=== PATIENT | male | born 1960 | race Caucasian/White ===

== ENCOUNTER 2023-02-21 03:06 | Inpatient (IN) | payer MEDICAID ==
[~2023-02-21] VITALS: Ht 177.8 cm; Wt 75.0 kg
[2023-02-21] VITALS (17 sets, daily range): BP systolic 137–178; BP diastolic 84–112; PULSE 70–91; RESP 15–23; TEMP 97.3–97.9; O2SAT 92–100
[2023-02-21] MEDS ORDERED: normal saline 1000ml 1,000 ML IV ONE (04:05)
[2023-02-21] MEDS ORDERED: fentaNYL/PF 50MCG/1 ML 2ML syringe IV ONE (04:05)
[2023-02-21 04:16] LABS: HEMOGLOBIN 12.4 g/dl (14.0-17.9); MEAN CORPUSCULAR HGB CONC 33.7 g/dL (33.0-36.5); MEAN PLATELET VOLUME 7.5 FL (7.4-10.4); RED BLOOD COUNT 3.96 X10'6 (4.70-6.10)
[2023-02-21 04:18] LABS: BASOPHILS % (AUTO) 0.2 % (0-1); EOSINOPHILS # (AUTO) 0.1 X10'3 (0-0.9); EOSINOPHILS % (AUTO) 1.6 % (0-6); HEMATOCRIT 36.8 % (42.0-52.0); LYMPHOCYTES # (AUTO) 0.9 X10'3 (1.1-4.8); LYMPHOCYTES % (AUTO) 12.3 % (21-51); MEAN CORPUSCULAR HEMOGLOBIN 31.3 PG (27.0-31.0); MEAN CORPUSCULAR VOLUME 92.8 FL (78-98); MONOCYTES # (AUTO) 0.5 X10'3 (0-0.9); MONOCYTES % (AUTO) 6.7 % (2-12); NEUTROPHILS # (AUTO) 5.7 X10'3 (1.8-7.7); NEUTROPHILS % (AUTO) 79.2 % (42-75); PLATELET COUNT 239 X10'3 (140-440); RED CELL DISTRIBUTION WIDTH 15.1 % (11.5-14.5); WHITE BLOOD COUNT 7.2 X10'3 (4.5-11.0)
[2023-02-21 04:21] LABS: APTT 28 SECONDS (22-32); INR 1.1 INR; PROTHROMBIN TIME 11.5 SECONDS (9.0-12.0)
[2023-02-21 04:22] LABS: ALANINE AMINOTRANSFERASE 29 U/L (12-78); ALBUMIN/GLOBULIN RATIO 0.8 (1.1-1.5); ALKALINE PHOSPHATASE 129 IU/L (46-116); ANION GAP 11 (8-16); ASPARTATE AMINO TRANSFERASE 21 U/L (10-37); BILIRUBIN,TOTAL 0.5 MG/DL (0.1-1.0); BLOOD UREA NITROGEN 7 MG/DL (7-18); BUN/CREATININE RATIO 8.3 (10.0-20.0); CALCIUM 8.3 MG/DL (8.5-10.1); CHLORIDE 103 MMOL/L (99-107); CREATININE 0.84 MG/DL (0.60-1.10); GLUCOSE 120 MG/DL (70-104); SODIUM 141 MMOL/L (135-145); TOTAL CARBON DIOXIDE 27.3 MMOL/L (24-32); TOTAL PROTEIN 6.9 G/DL (6.4-8.2); eCRCL 92 ML/MIN; eGFR > 90 ML/MIN
[2023-02-21 04:30] LABS: POTASSIUM 2.5 MMOL/L (3.5-5.1)
[2023-02-21] MEDS ORDERED: potassium Cl 20 mEq SR tablet PO STA (04:38)
[2023-02-21] MEDS ORDERED: magnesium 2GM in 50ml NS 50 ML IV ONE (04:40)
[2023-02-21 04:50] LABS: PLATELET ESTIMATE NORMAL
[2023-02-21 04:52] LABS: ANISOCYTOSIS 1+; ELLIPTOCYTES FEW
[2023-02-21 04:54] LABS: LARGE PLATELETS FEW; SCHISTOCYTES FEW; TEAR DROP CELLS FEW
[2023-02-21] MEDS ORDERED: potassium Cl 40MEQ/1/2NS 520ml 520 ML IV SCH ×3 (05:26→05:28)
[2023-02-21] MEDS ORDERED: potassium Cl 40MEQ/1/2NS 520ml 520 ML IV ONE ×2 (05:29→09:30)
[2023-02-21 05:30] LABS: BILIRUBIN,URINE NEGATIVE (Neg); CLARITY,URINE CLEAR (Clear); COLOR,URINE YELLOW (Yellow); GLUCOSE, URINE NEGATIVE (Neg); KETONES,URINE TRACE mg/dl (Neg); LEUKOCYTE ESTERASE ,URINE NEGATIVE (Neg); NITRITES, URINE NEGATIVE (Neg); OCCULT BLOOD,URINE NEGATIVE (Neg); PROTEIN,URINE NEGATIVE (Neg); UROBILINOGEN,URINE 0.2 E.U/dL (0.2-1.0)
[2023-02-21 05:32] LABS: UA COLLECTION TYPE CLN CATCH MIDSTREAM
[2023-02-21] MEDS ORDERED: piperacillin/tazo 4.5gm/100ml 100 ML IV ONE (09:25)
[2023-02-21] MEDS ORDERED: magnesium 4gm in 100ml NS 100 ML IV PRN (10:20)
[2023-02-21] MEDS ORDERED: magnesium Cl slow-release 64mg tablet PO PRN (10:20)
[2023-02-21] MEDS ORDERED: potassium Cl 40MEQ/1/2NS 520ml 520 ML IV PRN (10:20)
[2023-02-21] MEDS ORDERED: acetaminophen 325mg tablet PO PRN (10:20)
[2023-02-21] MEDS ORDERED: potassium Cl 20 mEq SR tablet PO PRN (10:20)
[2023-02-21 11:05] LABS: BASOPHILS % (AUTO) 0.2 % (0-1); EOSINOPHILS % (AUTO) 0.4 % (0-6); HEMATOCRIT 37.4 % (42.0-52.0); HEMOGLOBIN 12.5 g/dl (14.0-17.9); LYMPHOCYTES % (AUTO) 12.8 % (21-51); MEAN CORPUSCULAR HEMOGLOBIN 31.3 PG (27.0-31.0); MEAN CORPUSCULAR HGB CONC 33.3 g/dL (33.0-36.5); MEAN CORPUSCULAR VOLUME 94.2 FL (78-98); MEAN PLATELET VOLUME 6.9 FL (7.4-10.4); MONOCYTES # (AUTO) 0.5 X10'3 (0-0.9); MONOCYTES % (AUTO) 6.9 % (2-12); NEUTROPHILS # (AUTO) 6.3 X10'3 (1.8-7.7); NEUTROPHILS % (AUTO) 79.7 % (42-75); PLATELET COUNT 255 X10'3 (140-440); RED BLOOD COUNT 3.97 X10'6 (4.70-6.10); RED CELL DISTRIBUTION WIDTH 15.1 % (11.5-14.5); WHITE BLOOD COUNT 7.9 X10'3 (4.5-11.0)
[2023-02-21 11:34] LABS: MAGNESIUM 2.2 MG/DL (1.5-2.4)
[2023-02-21 11:41] LABS: ALANINE AMINOTRANSFERASE 26 U/L (12-78); ALBUMIN 2.9 G/DL (3.4-5.0); ALBUMIN/GLOBULIN RATIO 0.7 (1.1-1.5); ALKALINE PHOSPHATASE 126 IU/L (46-116); ANION GAP 10 (8-16); ASPARTATE AMINO TRANSFERASE 19 U/L (10-37); BILIRUBIN,TOTAL 0.6 MG/DL (0.1-1.0); BLOOD UREA NITROGEN 6 MG/DL (7-18); BUN/CREATININE RATIO 7.5 (10.0-20.0); CALCIUM 7.9 MG/DL (8.5-10.1); CHLORIDE 105 MMOL/L (99-107); GLUCOSE 115 MG/DL (70-104); POTASSIUM 3.4 MMOL/L (3.5-5.1); SODIUM 141 MMOL/L (135-145); TOTAL CARBON DIOXIDE 26.2 MMOL/L (24-32); TOTAL PROTEIN 7.1 G/DL (6.4-8.2); eCRCL 96 ML/MIN; eGFR > 90 ML/MIN
[2023-02-21] MEDS: morphine 2 MG/ML inj. syringe IV PRN ×2 (14:09→22:48)
[2023-02-21] MEDS: ondansetron/PF 4mg/2ml inj IV PRN (14:20)
[2023-02-21] MEDS ORDERED: morphine 4 MG/ML inj SYRINge IV PRN (14:55)
[2023-02-21] MEDS ORDERED: ringers solution, lacted 1,000 ML IV SCH (14:55)
[2023-02-21] MEDS ORDERED: hydrALAZINE 20mg/ml inj. IV PRN (14:55)
[2023-02-21] MEDS ORDERED: ondansetron/PF 4mg/2ml inj IV PRN (14:55)
[2023-02-21] MEDS ORDERED: labetalol 20mg/4ml (5mg/ml) syringe IV PRN (14:55)
[2023-02-21] MEDS ORDERED: fentaNYL/PF 50MCG/1 ML 2ML syringe IV PRN ×2 (14:55)
[2023-02-21] MEDS ORDERED: morphine 2 MG/ML inj. syringe IV PRN (14:55)
[2023-02-21] MEDS ORDERED: BUPIVACAINE liposomal/PF 13.3 MG/ML vial IM ONE (15:52)
[2023-02-21] MEDS ORDERED: BUPIVAcaine 2.5mg/ml inj 50ml vial (contains preservative) ONE (15:52)
[2023-02-21] MEDS ORDERED: midazolam 1 mg/ML 2ml injection ONE (15:54)
[2023-02-21] MEDS ORDERED: clindamycin-Cleocin 900mg/D5W 50 ML BAG IV ONE (15:55)
[2023-02-21] MEDS ORDERED: fentaNYL /PF 50mcg/ml 5ml ampule ONE (15:55)
[2023-02-21] MEDS ORDERED: desflurane 240ml liquid inh. IH ONE (15:55)
[2023-02-21] MEDS ORDERED: rocuronium 10mg/ml inj IV ONE ×2 (15:55→16:12)
[2023-02-21] MEDS ORDERED: propofol inj 20 ML IV ONE (16:12)
[2023-02-21] MEDS ORDERED: dexamethasone sod phosphate 4mg/ml inj. ONE (16:12)
[2023-02-21] MEDS ORDERED: LIDOcaine 2% (20mg/ml) 5ml vial ONE (16:12)
[2023-02-21] MEDS ORDERED: ondansetron/PF 4mg/2ml inj ONE (16:12)
[2023-02-21] MEDS ORDERED: labetalol 20mg/4ml (5mg/ml) syringe IV ONE (16:42)
[2023-02-21] MEDS ORDERED: sugammadex 200mg/2ml injection IV ONE (17:00)
[2023-02-21 20:23] LABS: APTT 28 SECONDS (22-32); INR 1.2 INR; PROTHROMBIN TIME 12.3 SECONDS (9.0-12.0)
[2023-02-21] MEDS: heparin, porcine 5000 units/ml vial SQ SCH (21:14)
[2023-02-21] MEDS: temazepam 15mg capsule PO PRN (22:56)
[2023-02-22] VITALS (8 sets, daily range): BP systolic 146–161; BP diastolic 79–99; PULSE 70–100; RESP 14–20; TEMP 97–99; O2SAT 94–99
[2023-02-22] MEDS: morphine 2 MG/ML inj. syringe IV PRN ×5 (03:01→20:27)
[2023-02-22] MEDS: normal saline 1000ml 1,000 ML IV SCH ×5 (03:03→21:44)
[2023-02-22] MEDS: ondansetron/PF 4mg/2ml inj IV PRN ×3 (03:05→18:47)
[2023-02-22 06:20] LABS: BASOPHILS % (AUTO) 0 % (0-1); EOSINOPHILS % (AUTO) 0 % (0-6); HEMATOCRIT 30.6 % (42.0-52.0); HEMOGLOBIN 10.3 g/dl (14.0-17.9); LYMPHOCYTES # (AUTO) 0.9 X10'3 (1.1-4.8); MEAN CORPUSCULAR HEMOGLOBIN 31.4 PG (27.0-31.0); MEAN CORPUSCULAR HGB CONC 33.8 g/dL (33.0-36.5); MEAN CORPUSCULAR VOLUME 92.9 FL (78-98); MEAN PLATELET VOLUME 7.4 FL (7.4-10.4); MONOCYTES # (AUTO) 0.9 X10'3 (0-0.9); MONOCYTES % (AUTO) 6.2 % (2-12); NEUTROPHILS # (AUTO) 12.7 X10'3 (1.8-7.7); NEUTROPHILS % (AUTO) 87.8 % (42-75); PLATELET COUNT 240 X10'3 (140-440); RED CELL DISTRIBUTION WIDTH 15.6 % (11.5-14.5); WHITE BLOOD COUNT 14.5 X10'3 (4.5-11.0)
[2023-02-22 06:25] LABS: ALANINE AMINOTRANSFERASE 20 U/L (12-78); ALBUMIN 2.2 G/DL (3.4-5.0); ALBUMIN/GLOBULIN RATIO 0.7 (1.1-1.5); ALKALINE PHOSPHATASE 97 IU/L (46-116); ANION GAP 5 (8-16); ASPARTATE AMINO TRANSFERASE 21 U/L (10-37); BILIRUBIN,TOTAL 0.5 MG/DL (0.1-1.0); BLOOD UREA NITROGEN 9 MG/DL (7-18); BUN/CREATININE RATIO 9.8 (10.0-20.0); CALCIUM 7.8 MG/DL (8.5-10.1); CHLORIDE 105 MMOL/L (99-107); CREATININE 0.92 MG/DL (0.60-1.10); GLUCOSE 172 MG/DL (70-104); POTASSIUM 3.4 MMOL/L (3.5-5.1); SODIUM 139 MMOL/L (135-145); TOTAL CARBON DIOXIDE 29.2 MMOL/L (24-32); TOTAL PROTEIN 5.4 G/DL (6.4-8.2); eCRCL 84 ML/MIN; eGFR 83 ML/MIN
[2023-02-22] MEDS: heparin, porcine 5000 units/ml vial SQ SCH ×2 (07:30→20:28)
[2023-02-22] MEDS: potassium Cl 20 mEq SR tablet PO PRN ×3 (10:36→19:14)
[2023-02-22] MEDS: lactose-reduced food (Ensure Enlive) - 237ml bottle PO SCH ×2 (13:20→18:44)
[2023-02-22] MEDS: metoprolol succinate 25mg (24-HOUR) SR. Tablet PO SCH (15:21)
[2023-02-22 15:34] LABS: HEMOGLOBIN A1C 4.7 % (4.5-6.2)
[2023-02-22] MEDS: magnesium oxide 400mg tablet PO SCH (16:17)
[2023-02-22] MEDS: temazepam 15mg capsule PO PRN (21:41)
[2023-02-23] MEDS: magnesium oxide 400mg tablet PO SCH ×4 (00:23→23:55)
[2023-02-23] MEDS: morphine 2 MG/ML inj. syringe IV PRN ×3 (00:29→11:13)
[2023-02-23] MEDS ORDERED: NO HOME MEDS (03:02)
[2023-02-23] MEDS: ondansetron/PF 4mg/2ml inj IV PRN (05:54)
[2023-02-23 06:05] LABS: BASOPHILS % (AUTO) 0.1 % (0-1); EOSINOPHILS % (AUTO) 0.4 % (0-6); HEMATOCRIT 30.4 % (42.0-52.0); HEMOGLOBIN 10.2 g/dl (14.0-17.9); LYMPHOCYTES # (AUTO) 1.3 X10'3 (1.1-4.8); LYMPHOCYTES % (AUTO) 16.2 % (21-51); MEAN CORPUSCULAR HEMOGLOBIN 31.6 PG (27.0-31.0); MEAN CORPUSCULAR HGB CONC 33.7 g/dL (33.0-36.5); MEAN CORPUSCULAR VOLUME 93.9 FL (78-98); MEAN PLATELET VOLUME 7.3 FL (7.4-10.4); MONOCYTES # (AUTO) 0.6 X10'3 (0-0.9); MONOCYTES % (AUTO) 7.2 % (2-12); NEUTROPHILS # (AUTO) 6.1 X10'3 (1.8-7.7); NEUTROPHILS % (AUTO) 76.1 % (42-75); PLATELET COUNT 207 X10'3 (140-440); RED BLOOD COUNT 3.23 X10'6 (4.70-6.10); RED CELL DISTRIBUTION WIDTH 15.3 % (11.5-14.5)
[2023-02-23 06:29] LABS: ALANINE AMINOTRANSFERASE 21 U/L (12-78); ALBUMIN 2.3 G/DL (3.4-5.0); ALBUMIN/GLOBULIN RATIO 0.7 (1.1-1.5); ALKALINE PHOSPHATASE 87 IU/L (46-116); ANION GAP 6 (8-16); ASPARTATE AMINO TRANSFERASE 26 U/L (10-37); BILIRUBIN,TOTAL 0.5 MG/DL (0.1-1.0); BLOOD UREA NITROGEN 7 MG/DL (7-18); BUN/CREATININE RATIO 9.6 (10.0-20.0); CALCIUM 8.2 MG/DL (8.5-10.1); CHLORIDE 105 MMOL/L (99-107); CREATININE 0.73 MG/DL (0.60-1.10); GLUCOSE 87 MG/DL (70-104); POTASSIUM 3.7 MMOL/L (3.5-5.1); SODIUM 139 MMOL/L (135-145); TOTAL CARBON DIOXIDE 28.3 MMOL/L (24-32); TOTAL PROTEIN 5.6 G/DL (6.4-8.2); eCRCL 106 ML/MIN; eGFR > 90 ML/MIN
[2023-02-23 06:53] LABS: PLATELET ESTIMATE NORMAL
[2023-02-23 06:54] LABS: ANISOCYTOSIS 1+; POIKILOCYTOSIS FEW
[2023-02-23 07:00] VITALS: BP 159/95; PULSE 85; RESP 18; TEMP 97.1; O2SAT 98
[2023-02-23] MEDS: POTASSIUM BICARB 20meq eff tab 20 MEQ TABLET.EFF PO SCH (08:06)
[2023-02-23] MEDS: lisinopril 5mg tablet PO SCH (08:06)
[2023-02-23] MEDS: heparin, porcine 5000 units/ml vial SQ SCH ×2 (08:07→20:43)
[2023-02-23] MEDS: metoprolol succinate 25mg (24-HOUR) SR. Tablet PO SCH (08:07)
[2023-02-23] MEDS: lactose-reduced food (Ensure Enlive) - 237ml bottle PO SCH ×3 (08:08→18:00)
[2023-02-23 10:00] VITALS: BP 167/97; PULSE 87; RESP 15; TEMP 99; O2SAT 96
[2023-02-23 10:07] VITALS: RESP 18; O2SAT 97
[2023-02-23] MEDS ORDERED: HYDROcodone/acetaminophen 5mg/325mg tablet PO PRN (15:45)
[2023-02-23] MEDS: normal saline 1000ml 1,000 ML IV SCH (16:10)
[2023-02-23] MEDS: HYDROcodone/acetaminophen 10/325mg tab PO PRN ×2 (16:10→20:42)
[2023-02-23 18:00] VITALS: BP 139/79; PULSE 86; RESP 15; TEMP 98.7; O2SAT 95
[2023-02-23 18:30] VITALS: RESP 15; O2SAT 95
[2023-02-23 22:00] VITALS: BP 136/80; PULSE 72; RESP 18; TEMP 97.4; O2SAT 93
[2023-02-24] MEDS: HYDROcodone/acetaminophen 10/325mg tab PO PRN ×3 (02:40→11:53)
[2023-02-24 06:04] LABS: BASOPHILS % (AUTO) 0.3 % (0-1); EOSINOPHILS # (AUTO) 0.2 X10'3 (0-0.9); HEMATOCRIT 30.8 % (42.0-52.0); HEMOGLOBIN 10.4 g/dl (14.0-17.9); LYMPHOCYTES # (AUTO) 1.3 X10'3 (1.1-4.8); MEAN CORPUSCULAR HEMOGLOBIN 31.4 PG (27.0-31.0); MEAN CORPUSCULAR HGB CONC 33.7 g/dL (33.0-36.5); MEAN CORPUSCULAR VOLUME 93.4 FL (78-98); MEAN PLATELET VOLUME 6.8 FL (7.4-10.4); MONOCYTES # (AUTO) 0.5 X10'3 (0-0.9); MONOCYTES % (AUTO) 5.7 % (2-12); NEUTROPHILS # (AUTO) 6.1 X10'3 (1.8-7.7); PLATELET COUNT 215 X10'3 (140-440); RED CELL DISTRIBUTION WIDTH 15.1 % (11.5-14.5); WHITE BLOOD COUNT 8.1 X10'3 (4.5-11.0)
[2023-02-24 06:21] LABS: ALANINE AMINOTRANSFERASE 24 U/L (12-78); ALBUMIN 2.3 G/DL (3.4-5.0); ALBUMIN/GLOBULIN RATIO 0.7 (1.1-1.5); ALKALINE PHOSPHATASE 94 IU/L (46-116); ANION GAP 2 (8-16); ASPARTATE AMINO TRANSFERASE 30 U/L (10-37); BILIRUBIN,TOTAL 0.4 MG/DL (0.1-1.0); BLOOD UREA NITROGEN 5 MG/DL (7-18); BUN/CREATININE RATIO 6.9 (10.0-20.0); CALCIUM 8.2 MG/DL (8.5-10.1); CHLORIDE 102 MMOL/L (99-107); CREATININE 0.72 MG/DL (0.60-1.10); GLUCOSE 92 MG/DL (70-104); POTASSIUM 3.2 MMOL/L (3.5-5.1); SODIUM 138 MMOL/L (135-145); TOTAL CARBON DIOXIDE 33.6 MMOL/L (24-32); TOTAL PROTEIN 5.7 G/DL (6.4-8.2); eCRCL 107 ML/MIN; eGFR > 90 ML/MIN
[2023-02-24 06:54] VITALS: BP 149/80; PULSE 62; RESP 18; TEMP 97.6; O2SAT 95
[2023-02-24] MEDS: metoprolol succinate 25mg (24-HOUR) SR. Tablet PO SCH (07:53)
[2023-02-24] MEDS: lisinopril 5mg tablet PO SCH (07:53)
[2023-02-24] MEDS: heparin, porcine 5000 units/ml vial SQ SCH (07:53)
[2023-02-24] MEDS: magnesium oxide 400mg tablet PO SCH (07:53)
[2023-02-24] MEDS: lactose-reduced food (Ensure Enlive) - 237ml bottle PO SCH ×2 (07:53→13:10)
[2023-02-24] MEDS: POTASSIUM BICARB 20meq eff tab 20 MEQ TABLET.EFF PO SCH (07:53)
[2023-02-24] MEDS: potassium Cl 20 mEq SR tablet PO PRN (07:53)
[2023-02-24 08:28] VITALS: RESP 17; O2SAT 97
[2023-02-24 10:00] VITALS: BP 141/83; PULSE 78; RESP 16; TEMP 97.9; O2SAT 95
[2023-02-24 12:53] VITALS: RESP 18
[2023-02-24] MEDS ORDERED: HYDR-3964 PO ×3 (13:13→14:44)
[2023-02-24] MEDS ORDERED: METO-384 PO (13:13)
[2023-02-24] MEDS ORDERED: LISI5TAB22 PO (13:13)
[2023-02-24] MEDS ORDERED: potassium Cl 20 mEq SR tablet PO PRN (14:05)
== END 2023-02-24 15:30 | disposition home health service (06) | DRG 231 ==
LOC: ER 03:08 → ED HOLD 10:21 → ORTHO 4S 13:45
PROVIDERS: ADMIT Family Medicine; ATTEND Family Medicine
PROC: 3E0T3BZ Introduction of Anesthetic Agent into Peripheral Nerves and Plexi, Percutaneous Approach (ICD-10-PCS; principal; 2023-02-22)
PROC: 0D1N0Z4 Bypass Sigmoid Colon to Cutaneous, Open Approach (ICD-10-PCS; 2023-02-22)
DX: K56.699 Other intestinal obstruction unspecified as to partial versus complete obstruction (principal); J18.9 Pneumonia, unspecified organism; E87.6 Hypokalemia; K52.9 Noninfective gastroenteritis and colitis, unspecified; K59.00 Constipation, unspecified; F12.90 Cannabis use, unspecified, uncomplicated; K51.90 Ulcerative colitis, unspecified, without complications; I10 Essential (primary) hypertension; N30.90 Cystitis, unspecified without hematuria; N32.0 Bladder-neck obstruction
CPT/HCPCS: 36415; 74176; 80053; 81003; 83036; 83735; 85008; 85025; 85610; 85730; 86885; 86900; 86901; 87081; 99285; A4421; A4615; A4618; A6258; A6449; A7000; C1758; C9290; G0378; J0360; J1100; J1644; J2250; J2270; J2405; J2543; J2704; J3010; J3475; J3480; J3490; J7030; J7120

== ENCOUNTER 2023-03-02 04:58 | Emergency (ER) | payer MEDICAID ==
[~2023-03-02] VITALS: Ht 177.8 cm; Wt 69.1 kg
[~2023-03-02 04:58] MED LIST: HYDR-3964 PO; LISI5TAB22 PO; METO-384 PO
[2023-03-02] MEDS ORDERED: normal saline 1000ML IV soln IVB ONE (05:10)
[2023-03-02 06:01] LABS: BASOPHILS # (AUTO) 0.1 X10'3 (0-0.2); BASOPHILS % (AUTO) 1.2 % (0-1); EOSINOPHILS # (AUTO) 0.4 X10'3 (0-0.9); EOSINOPHILS % (AUTO) 5.9 % (0-6); LYMPHOCYTES # (AUTO) 0.8 X10'3 (1.1-4.8); LYMPHOCYTES % (AUTO) 12.9 % (21-51); MEAN CORPUSCULAR HGB CONC 33.4 g/dL (33.0-36.5); MEAN CORPUSCULAR VOLUME 92.7 FL (78-98); MEAN PLATELET VOLUME 7.3 FL (7.4-10.4); MONOCYTES # (AUTO) 0.5 X10'3 (0-0.9); MONOCYTES % (AUTO) 7.6 % (2-12); NEUTROPHILS # (AUTO) 4.7 X10'3 (1.8-7.7); NEUTROPHILS % (AUTO) 72.4 % (42-75); PLATELET COUNT 245 X10'3 (140-440); RED BLOOD COUNT 3.24 X10'6 (4.70-6.10); RED CELL DISTRIBUTION WIDTH 15.6 % (11.5-14.5); WHITE BLOOD COUNT 6.5 X10'3 (4.5-11.0)
[2023-03-02 06:08] LABS: ALANINE AMINOTRANSFERASE 28 U/L (12-78); ALBUMIN 2.6 G/DL (3.4-5.0); ALBUMIN/GLOBULIN RATIO 0.7 (1.1-1.5); ALKALINE PHOSPHATASE 172 IU/L (46-116); ANION GAP 3 (8-16); ASPARTATE AMINO TRANSFERASE 20 U/L (10-37); BILIRUBIN,TOTAL 0.4 MG/DL (0.1-1.0); BLOOD UREA NITROGEN 7 MG/DL (7-18); BUN/CREATININE RATIO 8.8 (10.0-20.0); CALCIUM 8.6 MG/DL (8.5-10.1); CHLORIDE 105 MMOL/L (99-107); GLUCOSE 99 MG/DL (70-104); LIPASE 27 U/L (16-77); POTASSIUM 3.6 MMOL/L (3.5-5.1); SODIUM 139 MMOL/L (135-145); TOTAL CARBON DIOXIDE 31.2 MMOL/L (24-32); TOTAL PROTEIN 6.2 G/DL (6.4-8.2); eCRCL 91 ML/MIN; eGFR > 90 ML/MIN
[2023-03-02] MEDS ORDERED: iohexol 300mg/ml 100ml inj. ONE (06:38)
[2023-03-02] MEDS ORDERED: morphine 4 MG/ML inj SYRINge IV ONE (06:50)
[2023-03-02] MEDS ORDERED: ondansetron/PF 4mg/2ml inj IV ONE (06:50)
[2023-03-02 09:17] VITALS: TEMP 98.9
[2023-03-02] MEDS ORDERED: mupirocin 2% ointment 22GM TP STA (09:33)
[2023-03-02] MEDS ORDERED: HYDR20OI TOP (09:39)
[2023-03-02] MEDS ORDERED: MUPI22OI30 TOP (09:39)
[2023-03-02] MEDS ORDERED: NAPR-1170 PO (10:07)
[2023-03-02] MEDS ORDERED: PANT20TA18 PO (10:07)
[2023-03-02] MEDS ORDERED: ACET-1025 PO (10:07)
[2023-03-02] MEDS ORDERED: METO5TAB85 PO (10:07)
[2023-03-02 10:12] VITALS: BP 123/71; PULSE 70; RESP 18; O2SAT 98
[2023-03-02] MEDS ORDERED: neomy sulf/bacitrac zn/polymixin b oint 14.2 gm tube TP SCH (16:00)
[2023-03-02] MEDS ORDERED: neomycin/bacitracin/polymyxin B/HC top. ointment 15gm TP SCH (16:00)
== END 2023-03-02 10:19 | disposition home or self-care (01) ==
LOC: ER 04:58
DX: K94.09 Other complications of colostomy (principal)
CPT/HCPCS: 36415; 71045; 74177; 80053; 83605; 83690; 84145; 85025; 85651; 86140; 96361; 96374; 96375; 99285; J2270; J2405; J3490; J7030; Q9967; A6258

== ENCOUNTER 2023-11-18 06:25 | Day surgery (SDC) | payer MEDICARE, MEDICAID ==
[~2023-11-18] VITALS: Ht 177.8 cm; Wt 75.0 kg
[~2023-11-18 06:25] MED LIST changes: +ASPI-1475 PO; +ATOR-2 PO; +CARV3.1244 PO; +FLO0.4C; -HYDR-3964 PO; -LISI5TAB22 PO; -METO-384 PO; +NITR0.4T48 SL; +TRAZ-251 PO
[2023-11-18 06:48] VITALS: BP 171/98; PULSE 84; RESP 12
[2023-11-18] MEDS ORDERED: MIDAZolam 1 MG/ML 5ML VIAL ONE (07:37)
[2023-11-18] MEDS ORDERED: fentaNYL/PF 50MCG/1 ML 2ML syringe ONE (07:37)
[2023-11-18 08:35] VITALS: BP 122/68; PULSE 65; RESP 20; O2SAT 100
[2023-11-18 08:45] VITALS: BP 116/75; PULSE 61; RESP 20; O2SAT 99
[2023-11-18 08:55] VITALS: BP 124/80; PULSE 65; RESP 14; O2SAT 99
[2023-11-18] MEDS ORDERED: simethicone 40mg/0.6ml oral drops 30ml ONE (09:00)
[2023-11-18 09:05] VITALS: BP 121/76; PULSE 64; RESP 14; O2SAT 99
[2023-12-03] MEDS ORDERED: DEC4T PO (13:54)
== END 2023-11-18 09:14 | disposition home or self-care (01) ==
LOC: GI LAB 06:25
PROVIDERS: ATTEND Surgery
DX: Z12.11 Encounter for screening for malignant neoplasm of colon (principal); K63.5 Polyp of colon; I10 Essential (primary) hypertension; Z79.82 Long term (current) use of aspirin; Z79.899 Other long term (current) drug therapy; Z93.3 Colostomy status; Z98.890 Other specified postprocedural states; Z83.3 Family history of diabetes mellitus
CPT/HCPCS: 44389; A4620; J2250; J3010; J7030; Z7512; 44388; 45378; 45385; 88305; 99152; 99153; C1889; G0500

== ENCOUNTER → 2023-12-03 | Emergency (ER) | payer MEDICARE, MEDICAID ==
[~2023-12-03] VITALS: Ht 177.8 cm; Wt 75.0 kg
[~2023-12-03] MED LIST changes: +DEC4T PO; +GADOTERATE MEGLUMINE 7.5 MMOL/15 ML VIAL IV ONE; +iohexol 300mg/ml 100ml inj. ONE
[2023-12-03 10:16] LABS: BASOPHILS % (AUTO) 0.5 % (0-1); EOSINOPHILS # (AUTO) 0.2 X10'3 (0-0.9); EOSINOPHILS % (AUTO) 3.2 % (0-6); HEMATOCRIT 44.9 % (42.0-52.0); HEMOGLOBIN 15.4 g/dl (14.0-17.9); LYMPHOCYTES # (AUTO) 1.8 X10'3 (1.1-4.8); LYMPHOCYTES % (AUTO) 26.6 % (21-51); MEAN CORPUSCULAR HEMOGLOBIN 34.8 PG (27.0-31.0); MEAN CORPUSCULAR HGB CONC 34.2 g/dL (33.0-36.5); MEAN CORPUSCULAR VOLUME 101.6 FL (78-98); MEAN PLATELET VOLUME 7.4 FL (7.4-10.4); MONOCYTES # (AUTO) 0.6 X10'3 (0-0.9); MONOCYTES % (AUTO) 9.6 % (2-12); NEUTROPHILS % (AUTO) 60.1 % (42-75); PLATELET COUNT 147 X10'3 (140-440); RED BLOOD COUNT 4.43 X10'6 (4.70-6.10); WHITE BLOOD COUNT 6.6 X10'3 (4.5-11.0)
[2023-12-03 10:21] LABS: ALBUMIN 3.7 G/DL (3.4-5.0); ANION GAP 5 (8-16); BLOOD UREA NITROGEN 10 MG/DL (7-18); CALCIUM 9.2 MG/DL (8.5-10.1); CHLORIDE 105 MMOL/L (99-107); GLUCOSE 100 MG/DL (70-104); POTASSIUM 4.6 MMOL/L (3.5-5.1); SODIUM 140 MMOL/L (135-145); TOTAL CARBON DIOXIDE 30.4 MMOL/L (24-32); eCRCL 76 ML/MIN; eGFR 75 ML/MIN
[2023-12-03 10:38] LABS: APTT 23 SECONDS (22-32); INR 1.1 INR; PROTHROMBIN TIME 11.4 SECONDS (9.0-12.0)
[2023-12-03] MEDS: normal saline 1000ml 1,000 ML IV ONE (10:45)
[2023-12-03] MEDS: dexamethasone 4mg tablet PO ONE (13:14)
[2023-12-03 14:08] VITALS: BP 150/84; PULSE 82; RESP 14; TEMP 97.5; O2SAT 98
== END | disposition home or self-care (01) ==
LOC: ER 08:23
DX: G93.9 Disorder of brain, unspecified (principal); R42 Dizziness and giddiness; H53.2 Diplopia; R11.10 Vomiting, unspecified; I10 Essential (primary) hypertension; F12.90 Cannabis use, unspecified, uncomplicated; R79.1 Abnormal coagulation profile; Z79.82 Long term (current) use of aspirin; Z79.899 Other long term (current) drug therapy
CPT/HCPCS: 36415; 70450; 70553; 71260; 74177; 80048; 82948; 85025; 85610; 85730; 93880; 96360; 99285; A9575; J7030; Q9967

== ENCOUNTER 2023-12-09 17:58 | Inpatient (IN) | payer MEDICARE, MEDICAID ==
[~2023-12-09] VITALS: Ht 175.3 cm; Wt 72.7 kg
[~2023-12-09 17:58] MED LIST changes: -GADOTERATE MEGLUMINE 7.5 MMOL/15 ML VIAL IV ONE; -iohexol 300mg/ml 100ml inj. ONE
[2023-12-09 19:10] LABS: BASOPHILS % (AUTO) 0.2 % (0-1); EOSINOPHILS # (AUTO) 0.1 X10'3 (0-0.9); EOSINOPHILS % (AUTO) 0.3 % (0-6); HEMATOCRIT 46.7 % (42.0-52.0); HEMOGLOBIN 15.7 g/dl (14.0-17.9); LYMPHOCYTES # (AUTO) 2.9 X10'3 (1.1-4.8); LYMPHOCYTES % (AUTO) 15.5 % (21-51); MEAN CORPUSCULAR HEMOGLOBIN 33.8 PG (27.0-31.0); MEAN CORPUSCULAR HGB CONC 33.7 g/dL (33.0-36.5); MEAN CORPUSCULAR VOLUME 100.3 FL (78-98); MEAN PLATELET VOLUME 7.1 FL (7.4-10.4); MONOCYTES % (AUTO) 10.6 % (2-12); NEUTROPHILS # (AUTO) 13.6 X10'3 (1.8-7.7); NEUTROPHILS % (AUTO) 73.4 % (42-75); PLATELET COUNT 280 X10'3 (140-440); RED BLOOD COUNT 4.65 X10'6 (4.70-6.10); RED CELL DISTRIBUTION WIDTH 13.5 % (11.5-14.5); WHITE BLOOD COUNT 18.5 X10'3 (4.5-11.0)
[2023-12-09 19:27] LABS: ALANINE AMINOTRANSFERASE 144 U/L (12-78); ALBUMIN 3.5 G/DL (3.4-5.0); ALBUMIN/GLOBULIN RATIO 0.9 (1.1-1.5); ALKALINE PHOSPHATASE 151 IU/L (46-116); ANION GAP 6 (8-16); ASPARTATE AMINO TRANSFERASE 66 U/L (10-37); BILIRUBIN,TOTAL 0.8 MG/DL (0.1-1.0); BLOOD UREA NITROGEN 23 MG/DL (7-18); BUN/CREATININE RATIO 22.1 (10.0-20.0); CALCIUM 8.4 MG/DL (8.5-10.1); CHLORIDE 102 MMOL/L (99-107); CREATININE 1.04 MG/DL (0.60-1.10); GLUCOSE 114 MG/DL (70-104); POTASSIUM 4.6 MMOL/L (3.5-5.1); SODIUM 137 MMOL/L (135-145); TOTAL PROTEIN 7.3 G/DL (6.4-8.2); eCRCL 71 ML/MIN; eGFR 72 ML/MIN
[2023-12-09 19:42] LABS: LIPASE 71 U/L (16-77); PRO BRAIN NATRIURETIC PEPTIDE 296 PG/ML (0-125)
[2023-12-09] MEDS ORDERED: iohexol 300mg/ml 100ml inj. ONE (19:45)
[2023-12-09] MEDS: ketorolac trometh 30MG/ML vial 30 MG/ML VIAL IV ONE (19:48)
[2023-12-09] MEDS: ondansetron/PF 4mg/2ml inj IV STA (21:09)
[2023-12-09] MEDS: normal saline 1000ml 1,000 ML IV ONE (21:10)
[2023-12-09] MEDS: HYDROmorphone 1 mg/ml syringe IV ONE (21:11)
[2023-12-09] MEDS: piperacillin/tazo 4.5gm/100ml 100 ML IV ONE (21:37)
[2023-12-09] MEDS ORDERED: acetaminophen 325mg tablet PO PRN (22:05)
[2023-12-09] MEDS ORDERED: magnesium sulf-water 4G/100mL 100 ML IV PRN (22:05)
[2023-12-09] MEDS ORDERED: magnesium sulf-water 2g/50mL 50 ML IV PRN (22:05)
[2023-12-09] MEDS ORDERED: enalaprilat dihydrate 2.5mg/2ml vial IV PRN (22:05)
[2023-12-09] MEDS ORDERED: magnesium Cl slow-release 64mg tablet PO PRN (22:05)
[2023-12-09] MEDS: ringers solution, lacted 1,000 ML IV SCH (22:05)
[2023-12-09] MEDS ORDERED: potassium Cl 20 mEq SR tablet PO PRN ×2 (22:05)
[2023-12-09] MEDS ORDERED: potassium Cl 40MEQ/1/2NS 520ml 520 ML IV PRN (22:05)
[2023-12-09] MEDS ORDERED: labetalol 20mg/4ml (5mg/ml) syringe IV PRN (22:05)
[2023-12-09] MEDS ORDERED: proCHLORperazine 10 MG/2 ml inj IV PRN (22:05)
[2023-12-09] MEDS ORDERED: meperidine/PF 25mg/ml syringe IV PRN ×3 (22:05)
[2023-12-09] MEDS ORDERED: morphine 2 MG/ML inj. syringe IV PRN ×2 (22:05)
[2023-12-09] MEDS ORDERED: mag hydrox/Alum hydrox/simeth 30ml oral suspension PO PRN (22:05)
[2023-12-09] MEDS ORDERED: magnesium hydroxide 30ml (MOM) UD suspension PO PRN (22:05)
[2023-12-09] MEDS ORDERED: normal saline 1000ml 1,000 ML IV SCH (22:05)
[2023-12-09] MEDS ORDERED: morphine 4 MG/ML inj SYRINge IV PRN (22:05)
[2023-12-09] MEDS ORDERED: midazolam 1 mg/ML 2ml injection ONE (22:22)
[2023-12-09] MEDS ORDERED: fentaNYL /PF 50mcg/ml 5ml ampule ONE (22:23)
[2023-12-09] MEDS ORDERED: sevoflurane 250ml liquid IH ONE (22:40)
[2023-12-09] MEDS: BUPIVAcaine 2.5mg/ml inj 50ml vial (contains preservative) ONE (22:47)
[2023-12-09] MEDS: BUPIVACAINE liposomal/PF 13.3 MG/ML vial IM ONE ×2 (22:47→22:48)
[2023-12-09] MEDS ORDERED: rocuronium 10mg/ml inj IV ONE (23:35)
[2023-12-09] MEDS ORDERED: LIDOcaine 2% (20mg/ml) 5ml vial ONE (23:35)
[2023-12-09] MEDS ORDERED: LIDOcaine 2% jelly 6ml syringe ***for topical use only ONE (23:35)
[2023-12-09] MEDS ORDERED: dexamethasone sod phosphate 4mg/ml inj. ONE (23:35)
[2023-12-09] MEDS ORDERED: propofol inj 20 ML IV ONE (23:35)
[2023-12-10] VITALS (21 sets, daily range): BP systolic 152–186; BP diastolic 85–105; PULSE 60–97; RESP 12–18; TEMP 97.9–98.8; O2SAT 62–100
[2023-12-10] MEDS: pantoprazole 40 MG vial IV SCH (00:48)
[2023-12-10] MEDS: sugammadex 200mg/2ml injection IV ONE (00:49)
[2023-12-10] MEDS: ondansetron/PF 4mg/2ml inj IV PRN ×2 (01:12→08:54)
[2023-12-10] MEDS: dextrose 5%-normal saline 1,000 ML IV SCH (01:49)
[2023-12-10] MEDS ORDERED: glucagon, human recombinant 1mg kit SUBCUT PRN (02:30)
[2023-12-10] MEDS ORDERED: dextrose 50%-water 50ml dispensing syringe IV PRN ×2 (02:30)
[2023-12-10] MEDS ORDERED: DEXTROSE 15 GM of carb/4 tabs (each vial/BOTTLE has 4 tablets) PO PRN ×2 (02:30)
[2023-12-10] MEDS ORDERED: DEXA2TAB (02:36)
[2023-12-10] MEDS ORDERED: LISI5TAB22 PO (02:36)
[2023-12-10] MEDS: piperacillin/tazo 4.5gm/100ml 100 ML IV SCH (02:36)
[2023-12-10] MEDS: hydrALAZINE 20mg/ml inj. IV PRN (04:03)
[2023-12-10] MEDS: HYDROmorphone inj. 0.5 MG/0.5 ML DISP.SYRIN IV PRN (04:08)
[2023-12-10] MEDS ORDERED: nitroGLYCERIN 0.4mg SUBLingual tab SL PRN (06:25)
[2023-12-10] MEDS: INSULIN LISPRO 100 UNIT/ML INSULN.PEN MULTI-DOSE SQ SCH (07:00)
[2023-12-10] MEDS: atorvastatin 20mg tablet PO SCH (08:00)
[2023-12-10] MEDS: lisinopril 5mg tablet PO SCH ×2 (08:00→19:49)
[2023-12-10] MEDS: K and/or MAG REPLACEMENT MC SCH (08:00)
[2023-12-10] MEDS: carVEDilol 3.125mg tablet PO SCH (08:00)
[2023-12-10] MEDS ORDERED: docusate sod 100mg capsule PO SCH (08:00)
[2023-12-10 09:25] LABS: BASOPHILS % (AUTO) 0.1 % (0-1); EOSINOPHILS % (AUTO) 0 % (0-6); HEMATOCRIT 42.3 % (42.0-52.0); HEMOGLOBIN 14.5 g/dl (14.0-17.9); LYMPHOCYTES # (AUTO) 0.4 X10'3 (1.1-4.8); MEAN CORPUSCULAR HEMOGLOBIN 34.9 PG (27.0-31.0); MEAN CORPUSCULAR HGB CONC 34.2 g/dL (33.0-36.5); MEAN CORPUSCULAR VOLUME 102.1 FL (78-98); MEAN PLATELET VOLUME 7.6 FL (7.4-10.4); MONOCYTES # (AUTO) 0.6 X10'3 (0-0.9); MONOCYTES % (AUTO) 4.8 % (2-12); NEUTROPHILS # (AUTO) 11.2 X10'3 (1.8-7.7); NEUTROPHILS % (AUTO) 92.1 % (42-75); PLATELET COUNT 121 X10'3 (140-440); RED BLOOD COUNT 4.14 X10'6 (4.70-6.10); RED CELL DISTRIBUTION WIDTH 13.5 % (11.5-14.5); WHITE BLOOD COUNT 12.2 X10'3 (4.5-11.0)
[2023-12-10 09:34] LABS: ALANINE AMINOTRANSFERASE 99 U/L (12-78); ALBUMIN 2.5 G/DL (3.4-5.0); ALBUMIN/GLOBULIN RATIO 0.8 (1.1-1.5); ALKALINE PHOSPHATASE 85 IU/L (46-116); ANION GAP 4 (8-16); ASPARTATE AMINO TRANSFERASE 41 U/L (10-37); BILIRUBIN,TOTAL 1.8 MG/DL (0.1-1.0); BLOOD UREA NITROGEN 16 MG/DL (7-18); BUN/CREATININE RATIO 15.1 (10.0-20.0); CALCIUM 7.2 MG/DL (8.5-10.1); CHLORIDE 106 MMOL/L (99-107); CREATININE 1.06 MG/DL (0.60-1.10); GLUCOSE 169 MG/DL (70-104); POTASSIUM 4.6 MMOL/L (3.5-5.1); SODIUM 135 MMOL/L (135-145); TOTAL PROTEIN 5.5 G/DL (6.4-8.2); eCRCL 69 ML/MIN; eGFR 70 ML/MIN
[2023-12-10] MEDS: metoprolol tartrate 1mg/ml inj IV ONE (17:24)
[2023-12-10] MEDS: carvedilol 6.25mg tablet PO SCH (19:47)
[2023-12-10] MEDS: traZODone 50mg tablet PO SCH (20:09)
[2023-12-11] MEDS: hydrALAZINE 20mg/ml inj. IV ONE (05:31)
[2023-12-11 06:19] LABS: BASOPHILS % (AUTO) 0.2 % (0-1); EOSINOPHILS % (AUTO) 0.3 % (0-6); HEMATOCRIT 42.4 % (42.0-52.0); HEMOGLOBIN 14.3 g/dl (14.0-17.9); LYMPHOCYTES % (AUTO) 8.5 % (21-51); MEAN CORPUSCULAR HEMOGLOBIN 34.2 PG (27.0-31.0); MEAN CORPUSCULAR HGB CONC 33.8 g/dL (33.0-36.5); MEAN CORPUSCULAR VOLUME 101.4 FL (78-98); MEAN PLATELET VOLUME 7.1 FL (7.4-10.4); MONOCYTES # (AUTO) 0.8 X10'3 (0-0.9); MONOCYTES % (AUTO) 7.1 % (2-12); NEUTROPHILS # (AUTO) 9.9 X10'3 (1.8-7.7); NEUTROPHILS % (AUTO) 83.9 % (42-75); PLATELET COUNT 146 X10'3 (140-440); RED BLOOD COUNT 4.18 X10'6 (4.70-6.10); RED CELL DISTRIBUTION WIDTH 13.6 % (11.5-14.5); WHITE BLOOD COUNT 11.8 X10'3 (4.5-11.0)
[2023-12-11 06:43] LABS: ALANINE AMINOTRANSFERASE 84 U/L (12-78); ALBUMIN 2.4 G/DL (3.4-5.0); ALBUMIN/GLOBULIN RATIO 0.8 (1.1-1.5); ALKALINE PHOSPHATASE 74 IU/L (46-116); ANION GAP 2 (8-16); ASPARTATE AMINO TRANSFERASE 22 U/L (10-37); BILIRUBIN,TOTAL 1.5 MG/DL (0.1-1.0); BLOOD UREA NITROGEN 12 MG/DL (7-18); BUN/CREATININE RATIO 13.8 (10.0-20.0); CALCIUM 7.6 MG/DL (8.5-10.1); CHLORIDE 106 MMOL/L (99-107); CREATININE 0.87 MG/DL (0.60-1.10); GLUCOSE 130 MG/DL (70-104); MAGNESIUM 2.3 MG/DL (1.5-2.4); POTASSIUM 3.6 MMOL/L (3.5-5.1); SODIUM 135 MMOL/L (135-145); TOTAL PROTEIN 5.5 G/DL (6.4-8.2); eCRCL 85 ML/MIN; eGFR 88 ML/MIN
[2023-12-11] MEDS: metoprolol tartrate 1mg/ml inj IV PRN (11:43)
[2023-12-11] MEDS: hydrALAZINE 20mg/ml inj. IV PRN (11:44)
[2023-12-11 18:00] VITALS: BP 165/102; PULSE 86; RESP 19; TEMP 98.5; O2SAT 98
[2023-12-11] MEDS ORDERED: HYDROcodone/acetaminophen 10/325mg tab PO PRN (18:30)
[2023-12-11 20:00] VITALS: RESP 19; O2SAT 98
[2023-12-11] MEDS: tamsulosin 0.4mg capsule PO SCH (20:31)
[2023-12-11 22:00] VITALS: BP 181/87; PULSE 71; RESP 16; TEMP 98.7; O2SAT 98
[2023-12-11 23:00] VITALS: BP 173/93
[2023-12-12] VITALS (9 sets, daily range): BP systolic 132–156; BP diastolic 81–93; PULSE 71–96; RESP 17–20; TEMP 96.9–98.7; O2SAT 96–98
[2023-12-12 06:56] LABS: BASOPHILS % (AUTO) 0.2 % (0-1); EOSINOPHILS # (AUTO) 0.3 X10'3 (0-0.9); EOSINOPHILS % (AUTO) 2.6 % (0-6); HEMATOCRIT 41.8 % (42.0-52.0); HEMOGLOBIN 14.4 g/dl (14.0-17.9); LYMPHOCYTES # (AUTO) 1.3 X10'3 (1.1-4.8); LYMPHOCYTES % (AUTO) 13.8 % (21-51); MEAN CORPUSCULAR HEMOGLOBIN 34.6 PG (27.0-31.0); MEAN CORPUSCULAR HGB CONC 34.5 g/dL (33.0-36.5); MEAN CORPUSCULAR VOLUME 100.3 FL (78-98); MONOCYTES # (AUTO) 0.8 X10'3 (0-0.9); MONOCYTES % (AUTO) 8.6 % (2-12); NEUTROPHILS # (AUTO) 7.1 X10'3 (1.8-7.7); NEUTROPHILS % (AUTO) 74.8 % (42-75); PLATELET COUNT 144 X10'3 (140-440); RED BLOOD COUNT 4.17 X10'6 (4.70-6.10); RED CELL DISTRIBUTION WIDTH 13.9 % (11.5-14.5); WHITE BLOOD COUNT 9.5 X10'3 (4.5-11.0)
[2023-12-12 07:21] LABS: ALANINE AMINOTRANSFERASE 73 U/L (12-78); ALBUMIN 2.2 G/DL (3.4-5.0); ALBUMIN/GLOBULIN RATIO 0.6 (1.1-1.5); ALKALINE PHOSPHATASE 76 IU/L (46-116); ANION GAP 5 (8-16); ASPARTATE AMINO TRANSFERASE 18 U/L (10-37); BILIRUBIN,TOTAL 1.3 MG/DL (0.1-1.0); BLOOD UREA NITROGEN 12 MG/DL (7-18); BUN/CREATININE RATIO 13.8 (10.0-20.0); CALCIUM 7.9 MG/DL (8.5-10.1); CHLORIDE 105 MMOL/L (99-107); CREATININE 0.87 MG/DL (0.60-1.10); GLUCOSE 102 MG/DL (70-104); MAGNESIUM 1.7 MG/DL (1.5-2.4); POTASSIUM 3.7 MMOL/L (3.5-5.1); SODIUM 136 MMOL/L (135-145); TOTAL CARBON DIOXIDE 26.4 MMOL/L (24-32); TOTAL PROTEIN 5.7 G/DL (6.4-8.2); eCRCL 85 ML/MIN; eGFR 88 ML/MIN
[2023-12-12] MEDS ORDERED: dexamethasone 1mg tablet PO SCH (14:10)
[2023-12-13] VITALS (8 sets, daily range): BP systolic 115–150; BP diastolic 66–87; PULSE 66–74; RESP 16–18; TEMP 97.9–98.5; O2SAT 94–99
[2023-12-13 06:30] LABS: BASOPHILS % (AUTO) 0.1 % (0-1); EOSINOPHILS # (AUTO) 0.4 X10'3 (0-0.9); EOSINOPHILS % (AUTO) 5.3 % (0-6); HEMATOCRIT 35.6 % (42.0-52.0); HEMOGLOBIN 12.5 g/dl (14.0-17.9); LYMPHOCYTES # (AUTO) 1.3 X10'3 (1.1-4.8); LYMPHOCYTES % (AUTO) 18.7 % (21-51); MEAN CORPUSCULAR HEMOGLOBIN 35.3 PG (27.0-31.0); MEAN CORPUSCULAR VOLUME 100.8 FL (78-98); MEAN PLATELET VOLUME 7.3 FL (7.4-10.4); MONOCYTES # (AUTO) 0.7 X10'3 (0-0.9); MONOCYTES % (AUTO) 9.7 % (2-12); NEUTROPHILS # (AUTO) 4.6 X10'3 (1.8-7.7); NEUTROPHILS % (AUTO) 66.2 % (42-75); PLATELET COUNT 127 X10'3 (140-440); RED BLOOD COUNT 3.53 X10'6 (4.70-6.10); RED CELL DISTRIBUTION WIDTH 13.2 % (11.5-14.5)
[2023-12-13 07:03] LABS: ALANINE AMINOTRANSFERASE 59 U/L (12-78); ALBUMIN/GLOBULIN RATIO 0.7 (1.1-1.5); ALKALINE PHOSPHATASE 67 IU/L (46-116); ANION GAP 5 (8-16); ASPARTATE AMINO TRANSFERASE 20 U/L (10-37); BILIRUBIN,TOTAL 1.4 MG/DL (0.1-1.0); BLOOD UREA NITROGEN 11 MG/DL (7-18); BUN/CREATININE RATIO 12.2 (10.0-20.0); CALCIUM 7.4 MG/DL (8.5-10.1); CHLORIDE 108 MMOL/L (99-107); GLUCOSE 112 MG/DL (70-104); MAGNESIUM 1.6 MG/DL (1.5-2.4); POTASSIUM 3.4 MMOL/L (3.5-5.1); SODIUM 138 MMOL/L (135-145); TOTAL CARBON DIOXIDE 25.1 MMOL/L (24-32); TOTAL PROTEIN 4.7 G/DL (6.4-8.2); eCRCL 82 ML/MIN; eGFR 85 ML/MIN
[2023-12-13] MEDS: diatr meglu/diatrizoate 30ml oral sol.-(3 dose) bottle PO SCH (21:42)
[2023-12-14 02:00] VITALS: BP 136/76; PULSE 65; RESP 16; TEMP 98; O2SAT 99
[2023-12-14 06:00] VITALS: BP 135/75; PULSE 71; RESP 16; TEMP 98.9; O2SAT 97
[2023-12-14 06:58] LABS: BASOPHILS % (AUTO) 0.2 % (0-1); EOSINOPHILS # (AUTO) 0.4 X10'3 (0-0.9); EOSINOPHILS % (AUTO) 6.3 % (0-6); HEMATOCRIT 33.4 % (42.0-52.0); HEMOGLOBIN 11.8 g/dl (14.0-17.9); LYMPHOCYTES # (AUTO) 1.5 X10'3 (1.1-4.8); LYMPHOCYTES % (AUTO) 23.4 % (21-51); MEAN CORPUSCULAR HEMOGLOBIN 35.3 PG (27.0-31.0); MEAN CORPUSCULAR HGB CONC 35.4 g/dL (33.0-36.5); MEAN CORPUSCULAR VOLUME 99.7 FL (78-98); MEAN PLATELET VOLUME 7.5 FL (7.4-10.4); MONOCYTES # (AUTO) 0.7 X10'3 (0-0.9); NEUTROPHILS # (AUTO) 3.6 X10'3 (1.8-7.7); NEUTROPHILS % (AUTO) 58.1 % (42-75); PLATELET COUNT 123 X10'3 (140-440); RED BLOOD COUNT 3.35 X10'6 (4.70-6.10); RED CELL DISTRIBUTION WIDTH 13.1 % (11.5-14.5); WHITE BLOOD COUNT 6.2 X10'3 (4.5-11.0)
[2023-12-14 07:33] LABS: ALANINE AMINOTRANSFERASE 64 U/L (12-78); ALBUMIN 1.9 G/DL (3.4-5.0); ALBUMIN/GLOBULIN RATIO 0.7 (1.1-1.5); ALKALINE PHOSPHATASE 83 IU/L (46-116); ANION GAP 2 (8-16); ASPARTATE AMINO TRANSFERASE 27 U/L (10-37); BILIRUBIN,TOTAL 1.3 MG/DL (0.1-1.0); BLOOD UREA NITROGEN 11 MG/DL (7-18); BUN/CREATININE RATIO 12.1 (10.0-20.0); CALCIUM 7.5 MG/DL (8.5-10.1); CHLORIDE 109 MMOL/L (99-107); CREATININE 0.91 MG/DL (0.60-1.10); GLUCOSE 100 MG/DL (70-104); POTASSIUM 3.5 MMOL/L (3.5-5.1); SODIUM 139 MMOL/L (135-145); TOTAL CARBON DIOXIDE 27.8 MMOL/L (24-32); TOTAL PROTEIN 4.7 G/DL (6.4-8.2); eCRCL 81 ML/MIN; eGFR 84 ML/MIN
== END 2023-12-14 09:30 | disposition left against medical advice (07) | DRG 326 ==
LOC: ER 17:59 → PACU 22:14 → EDBEDREQ 12-10 00:15 → PCU 3S 12-10 01:50
PROVIDERS: ADMIT Surgery; ATTEND Family Medicine
PROC: 0DQ90ZZ Repair Duodenum, Open Approach (ICD-10-PCS; principal; 2023-12-10)
DX: K26.5 Chronic or unspecified duodenal ulcer with perforation (principal); K65.0 Generalized (acute) peritonitis; R65.10 Systemic inflammatory response syndrome (SIRS) of non-infectious origin without acute organ dysfunction; K66.8 Other specified disorders of peritoneum; N40.0 Benign prostatic hyperplasia without lower urinary tract symptoms; E11.9 Type 2 diabetes mellitus without complications; I10 Essential (primary) hypertension; K66.0 Peritoneal adhesions (postprocedural) (postinfection); G93.89 Other specified disorders of brain; K43.5 Parastomal hernia without obstruction or gangrene; Z53.29 Procedure and treatment not carried out because of patient's decision for other reasons; Z79.82 Long term (current) use of aspirin; Z79.899 Other long term (current) drug therapy; Z90.49 Acquired absence of other specified parts of digestive tract; Z93.3 Colostomy status
CPT/HCPCS: 36415; 71045; 74177; 80053; 82948; 83036; 83605; 83690; 83735; 83880; 85025; 87040; 93005; 97110; 97116; 97161; 97530; 99291; A4421; A4618; A4649; A6449; A7000; C9290; G0378; J0131; J0360; J1100; J1170; J1815; J1885; J2250; J2405; J2470; J2543; J2704; J3010; J3490; J7030; J7040; J7042; J7120; Q9963; Q9967